=== PATIENT | female | born 1970 | race Caucasian/White ===

== ENCOUNTER → 2016-08-10 | Outpatient (CLI) | payer MEDICAID ==
[~2016-08-10] MED LIST: CENTRUM SILVER1 EAC1 PO; ETODOLAC400 MG PO; L-LYSINE500 M2 PO; LISINOPRIL40 MG PO; MIRAPEX 1 MG TAB1 MG PO; NEXIUM40 MG/PACK PO; OXYBUTYNIN5 MG PO; WELLBUTRIN XL300 MG PO; ZYRTEC ALLERGY10 MG PO
--- NOTE | 2016-08-10 15:09 | RADIOLOGY REPORT PS360 ---
WRIST-3 VIEWS-RT HISTORY: RT WRIST PAIN ORDERING PHYSICIAN: BLANCO HER MD PATIENT AGE: 46 years COMPARISON: None FINDINGS: No fracture or dislocation. No lytic or blastic change. There is normal mineralization.. The joint spaces are well-preserved. No significant degenerative/arthritic changes. No erosive changes evident.. IMPRESSION: Negative right wrist
== END ==
LOC: RAD 14:09
DX: M25.531 Pain in right wrist (principal)